=== PATIENT | male | born 1995 | race Caucasian/White ===

== ENCOUNTER 2022-05-18 00:26 | Emergency (ER) | payer BC, SELFPAY ==
--- NOTE | ~2022-05-18 | XR_ITS ---
EXAMINATION: XR foot LT min 3V DATE: 05/18/2022 00:47 INDICATION: Left foot pain. TECHNIQUE: 4 views of left foot were obtained. COMPARISON: None. FINDINGS: Bone alignment is normal. No fracture. There is mild osteoarthritis of first metatarsophala ngeal joint. IMPRESSION: 1. Mild osteoarthritis of first metatarsophalangeal joint. Reviewed, dictated and finalized at location A. IC RELATIONS WRITER
[2022-05-18 00:30] VITALS: BP 112/76; PULSE 76; RESP 16; TEMP 36.7; O2SAT 100
--- NOTE | 2022-05-18 02:52 | ED.LOWEXIN ---
HPI - Extremity Injury (Lower) General Chief Complaint: Extremity Injury, Lower <Lena Montgomery PA-C - Last Filed: 05/18/22 03:09> Stated Complaint: Left foot injury <MADELYN Jesus Last Filed: 05/18/22 03:09> Time Seen by Provider: 05/18/22 02:49 <MADELYN Jesus Last Filed: 05/18/22 03:09> Source: patient <MADELYN Jesus Last Filed: 05/18/22 03:09> Mode of arrival: ambulatory <MADELYN Jesus Last Filed: 05/18/22 03:09> Limitations: no limitations <MADELYN Jesus Last Filed: 05/18/22 03:09> History of Present Illness HPI Narrative: Patient is a 27-year-old male who presents to the ED with report of left dorsal foot pain. Patient reports he woke up yesterday morning, 05/17 with pain in his right foot. Pain seem to progressively worsen. Taking Tylenol without much relief. Patient denies any known injury. No recent falls. He states he did trip a couple of days ago, but did not injure his foot. Denies any numbness, tingling. No history of gout. No fevers. <Lena Montgomery PA-C - Last Filed: 05/18/22 03:09> Review of Systems Review of Systems: CONSTITUTIONAL: Denies fever, chills, or sweats. MUSCULOSKELETAL: See HPI. NEUROLOGIC: Denies tingling, numbness, or weakness. <MADELYN Jesus Last Filed: 05/18/22 03:09> All systems reviewed & are unremarkable except as noted in HPI and below <Lena Montgomery PA-C - Last Filed: 05/18/22 03:09> [facility] Past Medical History Medical History: Medical History (Updated 05/19/22 @ 00:00 by Background Daemon) No pertinent past medical history <MADELYN Jesus Last Filed: 05/18/22 03:09> Surgical History Surgical History: Surgical History (Updated 05/18/22 @ 02:54 by Lena Montgomery PA-C) No pertinent past surgical history <Lena Montgomery PA-C - Last Filed: 05/18/22 03:09> Social History Social History: Social History (Updated 05/18/22 @ 02:54 by Lena Montgomery PA-C) Smoking status: Never smoker <Lena Montgomery PA-C - Last Filed: 05/18/22 03:09> Exam Narrative: GENERAL: Well appearing, obese, non-toxic, in no acute distress. HEAD: Normocephalic, atraumatic. NECK: Supple. No adenopathy, no masses. RESPIRATORY: Airway patent, respirations nonlabored. CARDIOVASCULAR: Regular rate and rhythm without murmurs, rubs, or gallops. Pedal pulses 2+ and equal bilaterally. MUSCULOSKELETAL: Moves all extremities. Strength/ROM intact without gross deformities. Mild tenderness in the left dorsal foot, over area of distal third through fifth metatarsals. No significant swelling. No overlying ecchymosis, erythema, warmth. No pain with flexion of toes, but discomfort with flexion of entire forefoot. SKIN: Warm, dry, normal color. No rashes. NEURO: A&O X3. Speech clear. Cranial nerves II-XII grossly intact. No ataxic movements. PSYCHIATRIC: Appropriate mood and affect. Normal interaction. <Lena Montgomery PA-C - Last Filed: 05/18/22 03:09> Course [employer]ANER/PA Physician Supervision For this encounter, I have reviewed the mid-level provider documentation, treatment plan and medical decision making. I have had [id number] time with the patient. physical exam revealed some minor swelling without bruising to the top of the foot. X-ray did not reveal acute fracture. Patient be discharged with Motrin Tylenol and outpatient follow-up. All questions answered. Patient in agreement w/ disposition. <Corby Llamas MD - Last Filed: 05/20/22 05:56> Vital Signs Vital signs: Vital Signs Temperature 98.0 F 05/18/22 00:30 Pulse Rate 76 05/18/22 00:30 Respiratory Rate 16 05/18/22 00:30 Blood Pressure 112/76 05/18/22 00:30 Pulse Oximetry 100 05/18/22 00:30 Oxygen Delivery Room Air 05/18/22 00:30 Temperature 98.0 F 05/18/22 00:30 Pulse Rate 76 05/18/22 00:30
[2022-05-18] MEDS: NAPROXEN 500 MG TABLET PO (03:05)
== END 2022-05-18 03:10 | disposition home or self-care (01) ==
PROVIDERS: Emergency Provider Physician Assistant; PCP Student in an Organized Health Care Education/Training Program
DX: M79.672 Pain in left foot (principal); M19.072 Primary osteoarthritis, left ankle and foot
CPT/HCPCS: 73630; 99283; A9270